=== PATIENT | female | born 1965 | race African-American/Black ===

== ENCOUNTER 2023-06-25 14:23 | Emergency (ER) | payer BC ==
--- OUTSIDE RECORDS SUMMARY | 2023-06-25 14:39 | XMS REPORT | Continuity of Care Document ---
:1965 Author Organization [facility] t Address [address] [facility] [address] [place] [address] Care Team Providers Name Role Phone LETICIA WATERS Attending Clinician Unavailable RADHA MCCULLOUGH Attending Clinician Unavailable MD SUKHJINDER Attending Clinician Unavailable [id number] Attending Clinician Unavailable Payers Payer Name Policy Type Policy Number Effective Date [facility]piration Date [facility] [id number] 2022 [place] (ERS-BC[place] 00:00:00 CAPITATED) Problems Condition Condition Condition Status Onset Resolution Last Treating Co mments Source Name Details Category Date Date Treatment Clinician Date Primary Primary Disease Active Caroline hypertensi hypertensi 6-19 Se ybold on on 00:00: - 00 Externa l Hypertrigl Hypertrigl Disease Active Ghazal gallardo yceridemia yceridemia 3-21 Se ybold 00:00: - 00 Externa l Prediabete Prediabete Disease Active Ghazal gallardo s s 3-08 Seybold 00:00: - 00 Externa l Elevated Elevated Disease Active Kelse y blood blood 3-07 Seybold pressure pressure 00:00: - reading reading 00 Externa l Class 2 Class 2 Disease Active Caroline obesity obesity 3-07 Seybold due to due to 00:00: - excess excess 00 Externa calories calories l without without serious serious comorbidit comorbidit y with y with body mass body mass index index (BMI) of (BMI) of 38.0 to 38.0 to 38.9 in 38.9 in adult adult Class 2 Class 2 Disease Active Caroline obesity obesity 3-07 Seybold due to due to 00:00: - excess excess 00 Externa calories calories l without without serious serious comorbidit comorbidit y with y with body mass body mass index index (BMI) of (BMI) of 38.0 to 38.0 to 38.9 in 38.9 in adult adult Allergies, Adverse Reactions, Alerts This patient has no known allergies or adverse reactions. Social History Social Habit Start Date Stop Date Quantity Comments Source Gender identity Caroline rachel - External Sexual orientation Caroline Gomez - External Alcohol intake 2023-06-01 2023-06-01 Lifetime Caroline Sandoval bold 00:00:00 00:00:00 non-drinker - External (finding) History of Social 2023-03-01 2023-03-01 Caroline Gomez function 00:00:00 00:00:00 - External Tobacco use and 2022-10-17 2022-10-17 Smokeless tobacco Ke lula Gomez exposure 00:00:00 00:00:00 non-user - External Sex [birth year] At [birth year] Caroline rachel 00:00:00 00:00:00 - External Smoking Status Start Date Stop Date Source Never smoked tobacco Caroline spencer - External Medications Ordered Filled Start Stop Current Ordering Indication Dosage Frequency Signature Comments Components Source Medication Medication Date Date Medication? Clinician (SIG) Name Name Amlodipine 2022-08 Yes [id number] 10mg Take 1 K elsey Besylate 10 0-20 tablet (10 Se ybold MG oral 00:00: mg total) - Tablet 00 by mouth Externa daily. l Amlodipine Yes [id number] 5mg Take 1 K elsey Besylate 7-20 tablet (5 Seybol d (NORVASC) 5 00:00: mg total) - MG oral 00 by mouth Externa Tablet daily l Amlodipine 2022- No [id number] 5mg Take 1 Caroline Besylate 7-20 10-20 tablet (5 Seybo ld (NORVASC) 5 00:00: 00:00 mg total) - MG oral 00 :00 by mouth Externa Tablet daily l Amlodipine Yes [id number] 5mg Take 1 K elsey Besylate 6-19 tablet (5 Seybol d (NORVASC) 5 00:00: mg total) - MG oral 00 by mouth Externa Tablet daily l Amlodipine 2022- No [id number] 5mg Take 1 Caroline Besylate 6-19 07-20 tablet (5 Seybo ld (NORVASC) 5 00:00: 00:00 mg total) - MG oral 00 :00 by mouth Externa Tablet daily l Atorvastati Yes [id number] 10mg Take 1 Caroline n Calcium 3-21 tablet (10 Seyb old 10 MG oral 00:00: mg total) - Tablet 00 by mouth Externa every day l at bedtime Atorvastati Yes [id number] 10mg Take 1 Caroline n Calcium 3-21 tablet (10 Seyb old 10 MG oral 00:00: mg total) - Tablet 00 by mouth Externa every day l at bedtime Atorvastati 2022- No [id number] 10mg Take 1 Caroline n Calcium 3-21 -19 tablet (10 Sey bold 10 MG oral 00:00: 00:00 mg total) - Tablet 00 :00 by mouth Externa every day l at bedtime Immunizations Ordered Filled Immunization Date Status Comments [facility] e Immunization Name Name Tdap- (Boostrix, 2022-10-17 Completed Caroline pyle Adacel) 00:00:00 - External Shingles IM 2022-10-17 Completed Caroline pollard (Shingrix) 00:00:00 - External Tdap- (Boostrix, 2022-10-17 Completed Caroline pyle Adacel) 00:00:00 - External Shingles IM 2022-10-17 Completed Caroline pollard (Shingrix) 00:00:00 - External Tdap- (Boostrix, 2022-10-17 Completed Caroline pyle Adacel) 00:00:00 - External Shingles IM 2022-10-17 Completed Caroline pollard (Shingrix) 00:00:00 - External Tdap- (Boostrix, 2022-10-17 Completed Caroline pyle Adacel) 00:00:00 - External Shingles IM 2022-10-17 Completed Caroline pollard (Shingrix) 00:00:00 - External Tdap- (Boostrix, 2022-10-17 Completed Caroline pyle Adacel) 00:00:00 - External Shingles IM 2022-10-17 Completed Caroline pollard (Shingrix) 00:00:00 - External Covid-19 Vaccine 2021-04-12 Completed Caroline pyle ([employer]), Mrna-lnp, 00:00:00 - Ext ernal Asif Protein, Pf, 30mcg/0.3ml,IM Covid-19 Vaccine 2021-04-12 Completed Caroline pyle ([employer]), Mrna-lnp, 00:00:00 - Ext ernal Asif Protein, Pf, 30mcg/0.3ml,IM Covid-19 Vaccine 2021-04-12 Completed Caroline pyle ([employer]), Mrna-lnp, 00:00:00 - Ext ernal Asif Protein, Pf, 30mcg/0.3ml,IM Covid-19 Vaccine 2021-04-12 Completed Caroline pyle ([employer]), Mrna-lnp, 00:00:00 - Ext ernal Asif Protein, Pf, 30mcg/0.3ml,IM Covid-19 Vaccine 2021-04-12 Completed Caroline pyle ([employer]), Mrna-lnp, 00:00:00 - Ext ernal Asif Protein, Pf, 30mcg/0.3ml,IM Covid-19 Vaccine 2021-03-22 Completed Caroline pyle ([employer]), Mrna-lnp, 00:00:00 - Ext ernal Asif Protein, Pf, 30mcg/0.3ml,IM Covid-19 Vaccine 2021-03-22 Completed Caroline pyle ([employer]), Mrna-lnp, 00:00:00 - Ext ernal Asif Protein, Pf, 30mcg/0.3ml,IM Covid-19 Vaccine 2021-03-22 Completed Caroline pyle ([employer]), Mrna-lnp, 00:00:00 - Ext ernal Asif Protein, Pf, 30mcg/0.3ml,IM Covid-19 Vaccine 2021-03-22 Completed Caroline colesbomerline ([employer]), Mrna-lnp, 00:00:00 - Ext ernal Asif Protein, Pf, 30mcg/0.3ml,IM Covid-19 Vaccine 2021-03-22 Completed Caroline Joann lashanda ([employer]), Mrna-lnp, 00:00:00 - Ext ernal Asif Protein, Pf, 30mcg/0.3ml,IM Covid-19 Vaccine Unknown Completed Caroline David lashanda ([employer]), Mrna-lnp, - Ext ernal Asif Protein, Pf, 30mcg/0.3ml,IM Covid-19 Vaccine Unknown Completed Caroline Joann lashanda ([employer]), Mrna-lnp, - Ext ernal Asif Protein, Pf, 30mcg/0.3ml,IM Tdap- (Boostrix, Unknown Completed Caroline pyle Adacel) - External Shingles IM Unknown Completed Caroline Vanegas d (Shingrix) - External Vital Signs Vital Name Observation Time Observation Value Comments Source Systolic blood 2023-06-01 13:15:00 120 mm[Hg] Caroline Seybold - pressure External Diastolic blood 2023-06-01 13:15:00 80 mm[Hg] Peg isabel Seybold - pressure External Heart rate 2023-06-01 13:15:00 76 /min Caroline colesbold - External Body temperature 2023-06-01 13:15:00 36.78 Kavya Edyta coles Seybold - External Respiratory rate 2023-06-01 13:15:00 16 /min Edyta coles Seybold - External Body height 2023-06-01 13:15:00 167.6 cm Caroline colesbold - External Body weight 2023-06-01 13:15:00 102.059 kg Caroline David eybold - External BMI 2023-06-01 13:15:00 36.32 kg/m2 Caroline David eybold - External Body temperature 2023-03-01 14:18:00 37.11 Kavya Edyta coles Seybold - External Body height 2023-03-01 14:18:00 167.6 cm Caroline colesbold - External Body weight 2023-03-01 14:18:00 102.377 kg Caroline David eybold - External BMI 2023-03-01 14:18:00 36.43 kg/m2 Caroline S eybold - External Systolic blood 2023-03-01 14:18:00 130 mm[Hg] Caroline Seybold - pressure External Diastolic blood 2023-03-01 14:18:00 86 mm[Hg] Tysonse y Seybold - pressure External Heart rate 2023-03-01 14:18:00 60 /min Caroline S eybold - External Systolic blood 2023-01-29 13:46:00 132 mm[Hg] Caroline Seybold - pressure External Diastolic blood 2023-01-29 13:46:00 87 mm[Hg] Tysonse y Seybold - pressure External Heart rate 2023-01-29 13:46:00 76 /min Caroline David eybold - External Body temperature 2023-01-29 13:46:00 36.67 Kavya Edyta ey Seybold - External Respiratory rate 2023-01-29 13:46:00 16 /min Edyta ey Seybold - External Body height 2023-01-29 13:46:00 167.6 cm Caroline David eybold - External Body weight 2023-01-29 13:46:00 105.235 kg Caroline David eybold - External BMI 2023-01-29 13:46:00 37.45 kg/m2 Caroline David eybold - External Systolic blood 2022-12-05 13:59:00 143 mm[Hg] Caroline Seybold - pressure External Diastolic blood 2022-12-05 13:59:00 89 mm[Hg] Peg y Seybold - pressure External Heart rate 2022-12-05 13:59:00 73 /min Caroline David eybold - External Body temperature 2022-12-05 13:59:00 36.5 Kavya Edyta ey Seybold - External Respiratory rate 2022-12-05 13:59:00 18 /min Edyta ey Seybold - External Body height 2022-12-05 13:59:00 167.6 cm Caroline David eybold - External Body weight 2022-12-05 13:59:00 105.87 kg Caroline David eybold - External BMI 2022-12-05 13:59:00 37.67 kg/m2 Caroline David eybold - External Systolic blood 2022-10-31 14:07:00 137 mm[Hg] Caroline Seybold - pressure External Diastolic blood 2022-10-31 14:07:00 89 mm[Hg] Tysonse y Seybold - pressure External Heart rate 2022-10-31 14:07:00 88 /min Caroline S eybold - External Body temperature 2022-10-31 14:07:00 37.11 Kavya Edyta ey Seybold - External Respiratory rate 2022-10-31 14:07:00 16 /min Edyta ey Seybold - External Body height 2022-10-31 14:07:00 167.6 cm Caroline David eybold - External Body weight 2022-10-31 14:07:00 106.323 kg Caroline S eybold - External BMI 2022-10-31 14:07:00 37.83 kg/m2 Caroline S eybold - External Systolic blood 2022-10-17 20:20:00 140 mm[Hg] Caroline Seybold - pressure External Diastolic blood 2022-10-17 20:20:00 96 mm[Hg] Tysonse y Seybold - pressure External Heart rate 2022-10-17 20:20:00 74 /min Caroline S eybold - External Body temperature 2022-10-17 20:20:00 37.11 Kavya Edyta ey Seybold - External Respiratory rate 2022-10-17 20:20:00 17 /min Edyta coles Seybold - External Body height 2022-10-17 20:20:00 167.6 cm Caroline David eybold - External Body weight 2022-10-17 20:20:00 107.14 kg Caroline David eybold - External BMI 2022-10-17 20:20:00 38.12 kg/m2 Caroline David eybold - External Procedures This patient has no known procedures. Encounters Start End Encounter Admission Attending Care Care Encounter Source Date/Time Date/Time Type Type Clinicians Facility Department ID 2023-10-31 2023-10-31 Outpatient CAROLINE WATERS [id number] Caroline 08:00:00 08:00:00 AYSENUR Seybol d 2023-06-01 2023-06-01 Outpatient CAROLINE WATERS [id number] Caroline 09:00:00 09:00:00 AYSENUR Seybol d 2023-03-01 2023-03-01 Outpatient AKOGLU CAROLINE CABALLERO [id number] Caroline 09:30:00 09:30:00 AYSENUR Seybol d 2023-01-29 2023-01-29 Outpatient AKDILSHADU CAROLINE CABALLERO [id number] Caroline 09:15:00 09:15:00 AYSENUR Seybol d 2022-12-05 2022-12-05 Outpatient LEGENDRECAROLINE [id number] Caroline 09:45:00 09:45:00 RADHA Seybo ld 2022-11-20 2022-11-20 Outpatient MYKELSEYON CAROLINE CABALLERO [id number] Caroline 00:00:00 00:00:00 MD JAGUAR Seybol d 2022-10-31 2022-10-31 Outpatient AKOGLCAROLINE Cason [id number] Caroline 09:00:00 09:00:00 AYSENUR Seybol d 2022-10-27 2022-10-27 Outpatient AKOGLUCAROLINE [id number] Caroline 00:00:00 00:00:00 AYSENUR Seybol d 2022-10-24 2022-10-24 Outpatient CAROLINE CABALLERO [id number] Caroline 08:40:00 08:40:00 Seybol d 2022-10-18 2022-10-18 Outpatient LAB47 CAROLINE CABALLERO [id number] Caroline 08:30:00 08:30:00 Seybol d 2022-10-17 2022-10-17 Outpatient LAB47 CAROLINE CABALLERO [id number] Caroline 15:05:00 15:05:00 Seybol d 2022-10-17 2022-10-17 Outpatient AKOGLU, CAROLINE CABALLERO [id number] Caroline 14:00:00 14:00:00 AYSENUR Seybol d Results This patient has no known results.
--- NOTE | 2023-06-25 15:06 | RAD REPORT ---
EXAM DESCRIPTION: RAD - Foot Left 3 View - 06/25/2023 2:54 pm CLINICAL HISTORY: PAIN COMPARISON: No comparisons FINDINGS: Small radiopaque foreign body is seen along the plantar forefoot projecting close to the m edial anterior soft tissues of the foot. Tiny posterior and moderate plantar calcaneal spurs. No acut e fracture or dislocation seen.
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
[2023-06-25 15:58] VITALS: BP 133/87; TEMP 98; O2SAT 100
== END 2023-06-25 15:50 | disposition home or self-care (01) ==
LOC: ER 14:23
DX: M79.672 Pain in left foot (principal); V49.49XA Driver injured in collision with other motor vehicles in traffic accident, initial encounter; I10 Essential (primary) hypertension
CPT/HCPCS: 96372; 99284